=== PATIENT | female | born 1980 | race Hispanic/Latino ===

== ENCOUNTER 2023-01-25 11:32 | Emergency (ER) | payer OTHER ==
--- NOTE | 2023-01-25 12:12 | EDPHYS ---
Physician Documentation [facility] Name: Mary Kay Banegas Age: 42 yrs Sex: Female : 1980 Arrival Date: 01/25/2023 Time: 11:32 Bed IW4 Private MD: ED Physician Thierry Barba HPI: 01/25 12:14 This 42 yrs old Female presents to ER via Ambulatory with complaints of ec2 Shoulder Pain, Neck Problem - Pain. 12:14 Patient arrives today due to concern for neck pain and right arm numbness. Patient ec2 reports that she was diagnosed with cervical radiculopathy recently, was started on naproxen with minimal alleviation in symptoms. Patient reports no falls or trauma, denies any previous spinal cord issues or any previous neck pathology. . Historical: - Allergies: 11:58 PENICILLINS; mb9 - Home Meds: 11:58 None [Active]; mb9 - PMHx: 11:58 None; mb9 - PSHx: 11:58 None; mb9 - Immunization history:: Adult Immunizations up to date. - Social history:: Smoking status: Patient denies any tobacco usage or history of. ROS: 12:14 Constitutional: as per hpi ec2 Exam: 12:14 Constitutional: GEN: NAD Head: atraumatic Eyes: EOMI Ears: External ears are ec2 normal. CV: regular rate LUNGS: no respiratory distress ABD: non-distended SKIN: no evidence of rashes MSK: no evidence of trauma, positive Spurling test, intact strength in the bilateral upper extremities, intact sensation noted. No point tenderness on the C-spine. Does have right paraspinal tenderness. NEURO: moves all extremities equally Vital Signs: 11:56 BP 125 / 86; Pulse 75; Resp 18; Temp 98; Pulse Ox 100% ; Weight 47.63 kg; Height 5 ft. mb9 0 in. ; 11:56 Body Mass Index 20.51 (47.63 kg, 152.4 cm) mb9 MDM: 11:37 Patient medically screened. ec2 12:14 Data reviewed: vital signs. ED course: Patient arrives today due to concern for neck ec2 pain. Examination remarkable for positive Spurling test with recent diagnosis of cervical radiculopathy. Presentation consistent with cervical radiculopathy. Considered other acute process such as C-spine fracture, spinal cord pathology however patient without focal deficit and no point tenderness over the C-spine. We will start the patient on Robaxin as well as prednisone. Will discharge home and instructed her on PT follow-up. Return precautions given.. Administered Medications: No medications were administered Disposition Summary: 01/25/23 12:11 Discharge Ordered Notes: Location: Home ec2 Condition: Stable ec2 Diagnosis - Radiculopathy, cervical region ec2 - Neck Pain ec2 Discharge Instructions: - Discharge Summary Sheet ec2 - Cervical Radiculopathy ec2 Forms: - Medication Reconciliation Form ec2 - Thank You Letter ec2 - Antibiotic Education ec2 - Prescription Opioid Use ec2 - Patient Portal Instructions ec2 - Leadership Thank You Letter ec2 Prescriptions: - Prednisone 20 mg Oral Tablet - take 1 tablet ORAL route once daily for 5 days; 5 tablet; Refills: 0, Product ec2 Selection Permitted - methocarbamol 500 mg Oral tablet - take 2 tablets ORAL route 4 times per day; 30 tablet; Refills: 0, Product ec2 Selection Permitted Signatures: Griselda Sullivan RN RN mb9 Thierry Barba MD MD ec2
--- NOTE | 2023-01-25 12:12 | ER ---
Nurse's Notes [facility] Name: Mary Kay Banegas Age: 42 yrs Sex: Female : 1980 Arrival Date: 01/25/2023 Time: 11:32 Bed IW4 Private MD: Diagnosis: Radiculopathy, cervical region;Neck Pain Presentation: 01/25 11:56 Chief complaint: Patient states: "For the past week, I've been taking Naproxen for my mb9 neck pain. Last night it got worse and the pain feels like a pinched nerve. It's now in my head and back. Moving around hurts". Coronavirus screen: Vaccine status: At this time, the client does not indicate any symptoms associated with coronavirus-19. Ebola Screen: No symptoms or risks identified at this time. Initial Sepsis Screen: Does the patient meet any 2 criteria? No. Patient's initial sepsis screen is negative. Does the patient have a suspected source of infection? No. Patient's initial sepsis screen is negative. Risk Assessment: Do you want to hurt yourself or someone else? Patient reports no desire to harm self or others. Onset of symptoms was January 25, 2023. 11:56 Method Of Arrival: Ambulatory mb9 11:56 Acuity: SUZANNE 5 mb9 Triage Assessment: 11:58 General: Appears uncomfortable, Behavior is calm, cooperative. Pain: Complains of pain mb9 in back and right side of neck. Pain: Pain currently is 10 out of 10 on a pain scale. Quality of pain is described as throbbing. EENT: No signs and/or symptoms were reported regarding the EENT system. Neuro: Mena Agitation-Sedation Scale (RASS): 0 - Alert and Calm. Cardiovascular: Patient's skin is warm and dry. Respiratory: Airway is patent Respiratory effort is even, unlabored, Respiratory pattern is regular, symmetrical. GI: No signs and/or symptoms were reported involving the gastrointestinal system. : No signs and/or symptoms were reported regarding the genitourinary system. Derm: Skin is pink, warm \\T\\ dry. Musculoskeletal: Range of motion: intact in all extremities. Historical: - Allergies: 11:58 PENICILLINS; mb9 - Home Meds: 11:58 None [Active]; mb9 - PMHx: 11:58 None; mb9 - PSHx: 11:58 None; mb9 - Immunization history:: Adult Immunizations up to date. - Social history:: Smoking status: Patient denies any tobacco usage or history of. Screenin:10 [facility] ED Fall Risk Assessment (Adult) History of falling in the last 3 months, mb9 including since admission No falls in past 3 months (0 pts) Confusion or Disorientation No (0 pts) Intoxicated or Sedated No (0 pts) Impaired Gait No (0 pts) Mobility Assist Device Used No (0 pt) Altered Elimination No (0 pt) Score/Fall Risk Level 0 - 2 = Low Risk Oriented to surroundings, Maintained a safe environment, Educated pt \\T\\ family on fall prevention, incl call for assistance when getting out of bed. Abuse screen: Denies threats or abuse. Nutritional screening: No deficits noted. Tuberculosis screening: No symptoms or risk factors identified. Assessment: 12:10 Reassessment: No changes from previously documented assessment. mb9 Vital Signs: 11:56 BP 125 / 86; Pulse 75; Resp 18; Temp 98; Pulse Ox 100% ; Weight 47.63 kg; Height 5 ft. mb9 0 in. ; 11:56 Body Mass Index 20.51 (47.63 kg, 152.4 cm) mb9 ED Course: 11:34 Patient arrived in ED. mg5 11:37 Thierry Barba MD is Attending Physician. ec2 11:58 Triage completed. mb9 11:58 Arm band placed on. mb9 12:10 Griselda Sullivan RN is Primary Nurse. mb9 12:10 Patient has correct armband on for positive identification. mb9 12:11 No provider procedures requiring assistance completed. Patient did not have IV access mb9 during this emergency room visit. Administered Medications: No medications were administered Medication: 12:11 VIS not applicable for this client. mb9 Outcome: 12:11 Discharge ordered by . ec2 12:16 Discharged to home ambulatory, mb9 12:16 Condition: stable 12:16 Discharge instructions given to patient, Instructed on discharge instructions, follow up and referral plans. Demonstrated understanding of instructions, follow-up care, medications, Prescriptions given X 2, 12:17 Patient left the ED. mb9 Signatures: Griselda Sullivan RN RN mb9 Urmila Rangel mg5 Thierry Barba MD MD ec2 Corrections: (The following items were deleted from the chart) 12: 11:56 Acuity: SUZANNE 4 mb9 mb9
[2023-01-25 12:21] VITALS: BP 125/86; TEMP 98; O2SAT 100
== END 2023-01-25 12:17 | disposition home or self-care (01) ==
LOC: ER 11:32
DX: M54.12 Radiculopathy, cervical region (principal); Z88.0 Allergy status to penicillin
CPT/HCPCS: 99283